=== PATIENT | female | born 1985 | race Caucasian/White ===

== ENCOUNTER 2019-10-13 01:30 | Observation (INO) | payer BC, OTHER ==
[~2019-10-13] VITALS: Ht 160 cm; Wt 83.6 kg
[~2019-10-13 01:30] MED LIST: AMOX500 PO; AMPDEX5 PO; ERGO400 PO; HYDACE5 PO; MULVITMIND PO
[2019-10-13] MEDS ORDERED: AMPDEX30CR PO (01:39)
[2019-10-13] MEDS ORDERED: BUPROPION XL150 M1 PO (01:40)
[2019-10-13] MEDS ORDERED: CLON.2 PO (01:40)
[2019-10-13 01:56] LABS: Source, Urine Clean Catch
[2019-10-13 01:59] LABS: Bilirubin, Urine Neg (Neg); Blood, Urine 5+ (Neg); Glucose Qualitative, Urine Neg (Neg); Ketones, Urine 1+ (Neg); Leukocyte Esterase, Urine 3+ (Neg); Nitrite, Urine Pos (Neg); Protein, Urine 3+ (Neg); Specific Gravity, Urine 1.015 (1.003-1.022); Urobilinogen, Urine NORM (Normal)
[2019-10-13 02:01] LABS: Appearance, Urine Cloudy (Clear); Color, Urine Yellow (P-Yellow)
[2019-10-13 02:08] LABS: Bacteria Many /hpf; Red Blood Cells, Urine TNTC /hpf (0-2); Squamous Epithelial Cells Few /hpf (Few); U Amphetamine Screen DETECTED; U Barbituate Screen Not Detected; U Benzodiazapine Screen Not Detected; U Buprenorphine Screen Not Detected; U Cannabinoids Screen Not Detected; U Cocaine Screen Not Detected; U Methadone Screen Not Detected; U Methamphetamine Screen Not Detected; U Opiates Screen Not Detected; U Oxycodone Screen Not Detected; U Phencyclidine Screen Not Detected; U Propoxyphene Screen Not Detected; White Blood Cells, Urine TNTC /hpf (0-5)
[2019-10-13 02:44] LABS: BASOPHILS ABSOLUTE AUTO 0.03 K/mm3 (0.00-0.23); BASOPHILS PERCENT AUTO 0 % (0-2); EOSINOPHILS ABSOLUTE AUTO 0.01 K/mm3 (0.00-0.68); EOSINOPHILS PERCENT AUTO 0 % (0-6); Hematocrit 29.5 % (33.0-51.0); Hemoglobin 9.6 g/dL (11.5-16.0); IMMATURE GRAN ABSOLUTE AUTO 0.19 K/mm3 (0.00-0.10); IMMATURE GRAN PERCENT AUTO 1 % (0-1); LYMPHOCYTES PERCENT AUTO 4 % (21-46); MONOCYTES ABSOLUTE AUTO 0.73 K/mm3 (0.16-1.47); MONOCYTES PERCENT AUTO 4 % (4-13); Mean Corpuscular HGB 26.7 pg (26.0-34.0); Mean Corpuscular HGB Conc 32.5 g/dL (31.5-36.5); Mean Corpuscular Volume 82 fL (80-100); NEUTROPHILS ABSOLUTE AUTO 16.33 K/mm3 (1.96-9.15); NEUTROPHILS PERCENT AUTO 91 % (41-73); Platelet Count 217 K/mm3 (150-400); RDW Coefficient Variation 14.7 % (11.7-14.2); RDW Standard Deviation 43.6 fL (35.1-46.3); White Blood Cell Count 17.99 K/mm3 (4.00-11.30)
[2019-10-13 03:03] LABS: Alanine Aminotransfer (ALT/SGP 18 U/L (12-78); Albumin, Blood 3.1 g/dL (3.4-5.0); Alk Phos 70 U/L (50-136); Anion Gap 8 mmol/L (6-16); Aspartate Aminotrans (AST/SGOT 14 U/L (12-37); Bilirubin, Total 0.4 mg/dL (0.1-1.0); Blood Urea Nitrogen 11 mg/dL (8-24); Bun/Creatinine Ratio 13.2 (12.0-20.0); CO2, Blood 21 mmol/L (21-32); Calcium, Blood 8.3 mg/dL (8.5-10.1); Chloride, Blood 108 mmol/L (98-108); Creatinine, Blood 0.83 mg/dL (0.40-1.00); Glomerular Filtration Rate >60 (60-); Glucose, Blood 104 mg/dL (70-99); Potassium, Blood 2.5 mmol/L (3.5-5.5); Sodium, Blood 137 mmol/L (136-145); Total Protein, Blood 6.1 g/dL (6.4-8.2)
--- NOTE | 2019-10-13 05:04 | NUR ---
ARRIVAL/SHIFT SUMMARY PT SLEEPING IN ROOM COMFORTABLY AT THIS TIME. PT ARRIVED FROM ED AND WAS BALE TO STAND ON WALK TO HOSP BED W/O ASSIST. PT DENIES ANY PAIN UPON ARRIVAL. REPORTS TIRED AND WANTS TO SLEEP. VSS, PT AFEBRILE. RESP EVEN UNLABORED ON RA W/ SATS >92%. PT HAS 500NS BOLUS INFUSING, AND KLC INFUSING AT 100ML/HR IN PIV AT THIS TIME. DENIED NEEDS. PT IS INDEPENDENT IN ROOM. CALL LIGHT IN REACH.
--- NOTE | 2019-10-13 09:10 | NUR ---
NOTE PT ALERT AND OREINTED. SR/ST. UP AD CHANCE. VOIDING BEV,CLOUDY SHAWNA URINE. IVF INFUSING. VSS. PT DENIES PAINFUL/BURNING URINATION. NO BACK PAIN OR NAUSEA. SHE DID COMPLAIN OF BEING DIZZY AT HOME. CONTINUE POT.
[2019-10-13 12:53] LABS: Anion Gap 5 mmol/L (6-16); Blood Urea Nitrogen 9 mg/dL (8-24); Bun/Creatinine Ratio 14.9 (12.0-20.0); CO2, Blood 18 mmol/L (21-32); Calcium, Blood 6.3 mg/dL (8.5-10.1); Chloride, Blood 121 mmol/L (98-108); Glomerular Filtration Rate >60 (60-); Glucose, Blood 77 mg/dL (70-99); Potassium, Blood 3.8 mmol/L (3.5-5.5); Sodium, Blood 144 mmol/L (136-145)
--- NOTE | 2019-10-13 13:45 | NUR ---
transfer to rm 357 Report called to Shameka sanches. Pt agreeable to transfer. COntinue pot.
--- NOTE | 2019-10-13 15:46 | NUR ---
SHIFT SUMMARY RECEIVED PT TO RM 357 VIA W/C FROM PCU 15. A&O, ABLE TO TX SELF TO BED. RECEIVED REPORT FROM FRED HO, PT TO ER LAST NIGHT D/T "FEELING LOWSY ALL DAY" THEN FINDING TEMP AT 103.0. PT ADMITTED FOR UTI, SEPSIS, AND HYPOKALEMIA. PT IMPROVING AND NEARING END OF SEPSIS PROTOCOL BOLUS. TO BE SL WHEN COMPLETE. NEXT ABX DUE TONIGHT. SEAN PG INFUSING. PER REPORT, SLUGGISH TO DRAW FROM. PT ON RA WITH LUNGS CTA. NO C/O PAIN, NAUSEA, OR BLADDER SPASMS. PT INDEPENDENT TO BTHRM. REFUSED SHOWER. PER REPORT, PT TO D/C TO HOME IN AM. VASE FOR BD KILGORE PROVIDED. DENIED FURTHER NEEDS AT THIS TIME. CALL LT IN REACH.
[2019-10-14 04:16] LABS: BASOPHILS ABSOLUTE AUTO 0.03 K/mm3 (0.00-0.23); BASOPHILS PERCENT AUTO 0 % (0-2); EOSINOPHILS ABSOLUTE AUTO 0.02 K/mm3 (0.00-0.68); EOSINOPHILS PERCENT AUTO 0 % (0-6); Hematocrit 26.9 % (33.0-51.0); Hemoglobin 8.4 g/dL (11.5-16.0); IMMATURE GRAN ABSOLUTE AUTO 0.14 K/mm3 (0.00-0.10); IMMATURE GRAN PERCENT AUTO 1 % (0-1); LYMPHOCYTES ABSOLUTE AUTO 1.19 K/mm3 (0.84-5.20); LYMPHOCYTES PERCENT AUTO 8 % (21-46); MONOCYTES ABSOLUTE AUTO 0.78 K/mm3 (0.16-1.47); MONOCYTES PERCENT AUTO 5 % (4-13); Mean Corpuscular HGB 26.3 pg (26.0-34.0); Mean Corpuscular HGB Conc 31.2 g/dL (31.5-36.5); Mean Corpuscular Volume 84 fL (80-100); Mean Platelet Volume 12.3 fL (9.1-12.4); NEUTROPHILS PERCENT AUTO 86 % (41-73); Platelet Count 166 K/mm3 (150-400); RDW Coefficient Variation 15.5 % (11.7-14.2); Red Blood Cell Count 3.19 M/mm3 (3.80-5.20); White Blood Cell Count 14.86 K/mm3 (4.00-11.30)
[2019-10-14 05:00] LABS: Alanine Aminotransfer (ALT/SGP 18 U/L (12-78); Albumin, Blood 2.6 g/dL (3.4-5.0); Albumin/Globulin Ratio 0.8 (0.8-1.8); Alk Phos 64 U/L (50-136); Anion Gap 7 mmol/L (6-16); Aspartate Aminotrans (AST/SGOT 15 U/L (12-37); Bilirubin, Total 0.4 mg/dL (0.1-1.0); Blood Urea Nitrogen 11 mg/dL (8-24); Bun/Creatinine Ratio 16.2 (12.0-20.0); CO2, Blood 19 mmol/L (21-32); Calcium, Blood 7.4 mg/dL (8.5-10.1); Chloride, Blood 112 mmol/L (98-108); Creatinine, Blood 0.68 mg/dL (0.40-1.00); Globulin, Blood 3.3 g/dL (2.2-4.0); Glomerular Filtration Rate >60 (60-); Glucose, Blood 82 mg/dL (70-99); Potassium, Blood 3.9 mmol/L (3.5-5.5); Sodium, Blood 138 mmol/L (136-145); Total Protein, Blood 5.9 g/dL (6.4-8.2)
--- NOTE | 2019-10-14 06:35 | NUR ---
PT A/O X4. INDEPENDENT IN ROOM. DENIES PAIN, SOB, NAUSEA, DIZZINESS. PT WAS FEBRILE AROUND 2100. ROOM TEMP LOWERED, COOL WASH CLOTH APPLIED TO FORHEAD. TEMP RE-ASSESSED WHICH DID NOT GO DOWN. PT GIVEN TYLENOL WHICH BROUGHT FEVER DOWN AND HAS BEEN AFEBRILE SINCE GIVEN TYLENOL. SLEPT WELL TONIGHT. NO ACUTE CHANGES.
[2019-10-14] MEDS ORDERED: CEFP200 PO (10:10)
[2019-10-14] MEDS ORDERED: ACET325 PO (10:10)
[2019-10-14] MEDS ORDERED: ONDA4ODT MM (10:10)
[2019-10-14] MEDS ORDERED: Florastor250 MG PO (10:11)
[2019-10-14] MEDS ORDERED: POTCHL20ER PO (10:11)
[2019-10-14] MEDS ORDERED: FERSU300 PO (10:48)
[2019-10-14] MEDS ORDERED: ASCO500 PO (10:48)
--- NOTE | 2019-10-14 11:02 | NUR ---
PT DCD HOME. MED REC FAXED TO [facility] PER PT REQUEST. JIM VIDAL WILL BE DRIVING HER HOME SHE CAME IN VIA AMBULANCE. PT HAS APPT SCHEDULED WITH PCP. ALL INSTRUCTIONS REVIEWED WITH PT WHO VERBALIZED AN UNDERSTANDING AND ALL QUESTIONS ANSWERED. IV'S REMOVED WITH NO ISSUE. ALL PERSONAL BELONINGS SENT WITH PT. PT IS GETTING DRESSED AND AWAITING HER RIDE.
== END 2019-10-14 11:21 | disposition home or self-care (01) ==
LOC: ER 01:30 → MEDS 01:31 → PCU 01:31 → MEDS 14:08
PROVIDERS: Emergency Medicine; ADMIT Internal Medicine
DX: A41.50 Gram-negative sepsis, unspecified (principal); N39.0 Urinary tract infection, site not specified; E87.6 Hypokalemia; D72.829 Elevated white blood cell count, unspecified; H66.90 Otitis media, unspecified, unspecified ear; F90.9 Attention-deficit hyperactivity disorder, unspecified type; Z79.899 Other long term (current) drug therapy; Z88.0 Allergy status to penicillin
CPT/HCPCS: 36415; 36416; 80048; 80053; 81001; 83605; 85025; 87040; 87077; 87086; 87186; 93005; 93010; 96361; 96365; 96366; 96372; 96375; 99285-25; A9270; G0378; J0696; J1650; J2405; J3480; J7030; P9612

== ENCOUNTER 2019-10-26 16:46 | Inpatient (IN) | payer BC, OTHER ==
[~2019-10-26] VITALS: Ht 160 cm; Wt 82.0 kg
[~2019-10-26 16:46] MED LIST changes: -CHLORZOXAZONE375 MG PO; -LEVOFLOXACIN750 MG PO; -VISBIOME 112.51 EACH PO; -VITAMIN B122500 MCG PO
[2019-10-26] MEDS ORDERED: VITAMIN B122500 MCG PO (17:39)
[2019-10-26] MEDS ORDERED: CHLORZOXAZONE375 MG PO (17:40)
[2019-10-26 18:22] LABS: Source, Urine Clean Catch
[2019-10-26 18:38] LABS: Bilirubin, Urine Neg (Neg); Blood, Urine 4+ (Neg); Glucose Qualitative, Urine Neg (Neg); Ketones, Urine Neg (Neg); Leukocyte Esterase, Urine 3+ (Neg); Nitrite, Urine Pos (Neg); Protein, Urine 1+ (Neg); Urobilinogen, Urine NORM (Normal)
[2019-10-26 18:41] LABS: Appearance, Urine Clear (Clear); Color, Urine Yellow (P-Yellow)
[2019-10-26 18:43] LABS: Bacteria Many /hpf; Red Blood Cells, Urine 0-2 /hpf (0-2); Squamous Epithelial Cells Few /hpf (Few)
[2019-10-26 19:32] LABS: Hematocrit 28.1 % (33.0-51.0); Hemoglobin 8.7 g/dL (11.5-16.0); Mean Corpuscular HGB 25.8 pg (26.0-34.0); Mean Corpuscular Volume 83 fL (80-100); Mean Platelet Volume 12.3 fL (9.1-12.4); Platelet Count 355 K/mm3 (150-400); RDW Coefficient Variation 15.4 % (11.7-14.2); Red Blood Cell Count 3.37 M/mm3 (3.80-5.20); White Blood Cell Count 24.95 K/mm3 (4.00-11.30)
[2019-10-26 19:50] LABS: Alanine Aminotransfer (ALT/SGP 24 U/L (12-78); Albumin, Blood 2.7 g/dL (3.4-5.0); Albumin/Globulin Ratio 0.6 (0.8-1.8); Alk Phos 111 U/L (50-136); Anion Gap 8 mmol/L (6-16); Aspartate Aminotrans (AST/SGOT 14 U/L (12-37); Bilirubin, Total 0.4 mg/dL (0.1-1.0); Blood Urea Nitrogen 12 mg/dL (8-24); Bun/Creatinine Ratio 14.9 (12.0-20.0); CO2, Blood 21 mmol/L (21-32); Calcium, Blood 8.5 mg/dL (8.5-10.1); Chloride, Blood 109 mmol/L (98-108); Globulin, Blood 4.8 g/dL (2.2-4.0); Glomerular Filtration Rate >60 (60-); Glucose, Blood 84 mg/dL (70-99); Potassium, Blood 3.9 mmol/L (3.5-5.5); Sodium, Blood 138 mmol/L (136-145); Total Protein, Blood 7.5 g/dL (6.4-8.2)
[2019-10-26 19:54] LABS: BAND PERCENT MAN 6 % (0-8); BASOPHILS ABSOLUTE MAN 0.49 K/mm3 (0.00-0.23); BASOPHILS PERCENT MAN 2 % (0-2); EOSINOPHILS PERCENT MAN 0 % (0-6); LYMPHOCYTES ABSOLUTE MAN 1.24 K/mm3 (0.84-5.20); LYMPHOCYTES PERCENT MAN 5 % (21-46); MONOCYTES ABSOLUTE MAN 0.74 K/mm3 (0.16-1.47); MONOCYTES PERCENT MAN 3 % (4-13); NEUTROPHILS ABSOLUTE MAN 22.45 K/mm3 (1.96-9.15); SEG NEUTROPHILS PERCENT MAN 84 % (41-73); TOTAL CELLS COUNTED 100
[2019-10-27 04:37] LABS: BASOPHILS ABSOLUTE AUTO 0.02 K/mm3 (0.00-0.23); BASOPHILS PERCENT AUTO 0 % (0-2); EOSINOPHILS ABSOLUTE AUTO 0.01 K/mm3 (0.00-0.68); EOSINOPHILS PERCENT AUTO 0 % (0-6); Hematocrit 25.5 % (33.0-51.0); Hemoglobin 7.7 g/dL (11.5-16.0); IMMATURE GRAN ABSOLUTE AUTO 0.69 K/mm3 (0.00-0.10); IMMATURE GRAN PERCENT AUTO 4 % (0-1); LYMPHOCYTES ABSOLUTE AUTO 0.95 K/mm3 (0.84-5.20); LYMPHOCYTES PERCENT AUTO 6 % (21-46); MONOCYTES PERCENT AUTO 8 % (4-13); Mean Corpuscular HGB 25.2 pg (26.0-34.0); Mean Corpuscular HGB Conc 30.2 g/dL (31.5-36.5); Mean Corpuscular Volume 83 fL (80-100); Mean Platelet Volume 11.7 fL (9.1-12.4); NEUTROPHILS ABSOLUTE AUTO 13.53 K/mm3 (1.96-9.15); NEUTROPHILS PERCENT AUTO 82 % (41-73); Platelet Count 288 K/mm3 (150-400); RDW Coefficient Variation 15.7 % (11.7-14.2); Red Blood Cell Count 3.06 M/mm3 (3.80-5.20)
[2019-10-27 04:55] LABS: Anion Gap 6 mmol/L (6-16); Blood Urea Nitrogen 13 mg/dL (8-24); Bun/Creatinine Ratio 15.2 (12.0-20.0); CO2, Blood 22 mmol/L (21-32); Calcium, Blood 7.5 mg/dL (8.5-10.1); Chloride, Blood 111 mmol/L (98-108); Creatinine, Blood 0.85 mg/dL (0.40-1.00); Glomerular Filtration Rate >60 (60-); Glucose, Blood 83 mg/dL (70-99); Sodium, Blood 139 mmol/L (136-145)
--- NOTE | 2019-10-27 05:14 | NUR ---
[id number] PHYSICIAN CORRESPONDENCE ALERTED PREVIOUS HGB 8.7; THIS AM CAME BACK @ 7.7. HX CHRONIC ANEMIA WELL CURRENTLY BEING ON MENSTRUAL CYCLE. RECIEVED 2,721 ML IV FLUIDS SO FAR. NO NEW ORDERS AT THIS TIME.
--- NOTE | 2019-10-27 06:21 | NUR ---
SHIFT SUMMARY RECIEVED REPORT FROM PRINCE HO, ED @ 0389. ARRIVED TO MEDICAL FLOOR @ 2251 VIA STRETCHER; NO ASSISTANCE NEED FOR TRANSFER TO BED. ORIENTED TO ROOM AND CALL SYSTEM. A/O, ABLE TO MAKE NEEDS KNOWN. COOPERATIVE WITH CARE. CALLS AND ANSWERS QUESTIONS APPROPRIATELY. NO C/O PAIN/DISCOMFORT; HOWEVER CONTINUES TO BE FEBRILE, MEDICATED PER EMAR. INDEPENDENT IN ROOM. IV FLUIDS CONTINUE TO INFUSE TO NEW 20G IV IN WITHOUT COMPLICATIONS. NO OTHER ACUTE CHANGES NOTED. BED IN LOWEST POSITION. CALL LIGHT AND BELONGINGS WITHIN REACH. WCTM. REPORT TO ARMANDO HO.
--- NOTE | 2019-10-27 15:22 | NUR ---
PT HAD A VEWS SCORE OF 4 RESP RATE 16 HR 110 (THIS HAS BEEN THE CASE SINCE ADMIT) AND TEMP 102.9. PROMPTLY MEDICATED PT WITH 650MG TYLENOL HAD HER REMOVE HER SWEAT PANTS AND PLACED HER UNDER JUST A SHEET, ICE PACK PLACED ON THE BACK OF HER NECK SHE STATED SHE ALSO HAS A MILD HEADACHE. WILL RECHECK TEMP IN 1 HOUR.
--- NOTE | 2019-10-27 16:14 | NUR ---
TEMPT RECHECK- PT TEMP ON RECHECK WAS 100.9. CALLED DR CARTER FOR THE ELEVATED VEWS SCORE, UPDATED WITH THE INTERVENTIONS EMPLOYED AND THE RESULT. NO NEW ORDERS AT THIS TIME WILL CTM.
--- NOTE | 2019-10-27 18:47 | NUR ---
SHIFT SUMMARY- PT ALERT, ORIENTED AND INDEPENDENT IN THE ROOM. PT MEDICATED WITH TYLENOL ONCE FOR SLIGHT KIRK (PER PT) 3/10 AND A TEMP 102.9. THIS SCORED A VEWS SCORE OF 4 REQUIREING VS [id number] X 3. WILL PASS ON TO NIGHT RN. PT TEMP DOWN TO 99.8 ON LAST VEWS SCORE AND HR DOWN TO 88. PT RESP RATE IS SHALLOW AND FAST. THIS SEEMS TO OCCUR REGULARLY. PT STATES NO SOB NO S&S OF DISTRESS NOTED AT THIS TIME. PT DENIES THE NEED FOR PAIN MEDICATION AT THIS TIME. PT HAS IVF RUNNING NS [id number] AT 75ML/HR. PT INDEPENDENT TO THE BATHROOM AND WILL WRITE THE NUMBER ON THE DRY ERASE BOARD IF SHE EMPTIES THE HAT. SHE DOES NOT LIKE TO CALL STAFF SO THIS WAS THE COMPROMISE. STAFF CAN CHART THE AMOUNT ON THEIR ROUNDING. WILL PASS ON IN REPORT TO NIGHT RN. PT HAS A NEW ORDER FOR IV IRON AT 1999 IRON DEFICIENCY PANEL SHOWS A LEVEL OF 8 NORMAL RANGE 50-170. IV IRON ORDERED AFTER THE RESULTS.
--- NOTE | 2019-10-27 23:44 | NUR ---
Pt temp down to 99 degrees f. Will return to routine VS but continue to assess pt throughout noct for fever, etc. Call light in reach. IVF infusing as per MD orders - see MAR for details.
[2019-10-28 04:15] LABS: Hematocrit 23.8 % (33.0-51.0); Hemoglobin 7.4 g/dL (11.5-16.0); Mean Corpuscular HGB 25.9 pg (26.0-34.0); Mean Corpuscular HGB Conc 31.1 g/dL (31.5-36.5); Mean Corpuscular Volume 83 fL (80-100); Mean Platelet Volume 11.5 fL (9.1-12.4); Platelet Count 334 K/mm3 (150-400); RDW Coefficient Variation 15.9 % (11.7-14.2); RDW Standard Deviation 48.5 fL (35.1-46.3); Red Blood Cell Count 2.86 M/mm3 (3.80-5.20); White Blood Cell Count 9.78 K/mm3 (4.00-11.30)
--- NOTE | 2019-10-28 05:12 | NUR ---
SUMMARY PT RESTING QUIETLY WITH OCCASIONAL WAKEFULNESS TO GO TO THE BATHROOM. FEVER BROKE LATE EVENING AND CURRENTLY REMAINS AFEBRILE (SEE DOC FLOW SHEETS). IVF OF NS WITH 20 mEq OF KCL INFUSING AT 75 ML/HR PER MD ORDERS. CALL LIGHT IN REACH. WILL CONTINUE TO MONITOR.
--- NOTE | 2019-10-28 17:11 | NUR ---
PT HAS BEEN INDEPENDENT IN ROOM AND AOX4. NO DISTRESS NOTED AND AFEBRILE TODAY. PT CALLS APPROPRIATELY AND IS PLEASANT WITH CARE. DENIED ANY PAIN AND HAS CALL LIGHT AVAILBLE. WILL CONTINUE TO MONITOR.
[2019-10-29 04:37] LABS: BASOPHILS ABSOLUTE AUTO 0.03 K/mm3 (0.00-0.23); BASOPHILS PERCENT AUTO 0 % (0-2); EOSINOPHILS ABSOLUTE AUTO 0.09 K/mm3 (0.00-0.68); EOSINOPHILS PERCENT AUTO 1 % (0-6); Hemoglobin 7.4 g/dL (11.5-16.0); IMMATURE GRAN PERCENT AUTO 1 % (0-1); LYMPHOCYTES ABSOLUTE AUTO 1.25 K/mm3 (0.84-5.20); LYMPHOCYTES PERCENT AUTO 15 % (21-46); MONOCYTES ABSOLUTE AUTO 0.67 K/mm3 (0.16-1.47); MONOCYTES PERCENT AUTO 8 % (4-13); Mean Corpuscular HGB 25.5 pg (26.0-34.0); Mean Corpuscular HGB Conc 30.8 g/dL (31.5-36.5); Mean Corpuscular Volume 83 fL (80-100); Mean Platelet Volume 11.4 fL (9.1-12.4); NEUTROPHILS ABSOLUTE AUTO 6.28 K/mm3 (1.96-9.15); NEUTROPHILS PERCENT AUTO 75 % (41-73); Platelet Count 379 K/mm3 (150-400); RDW Standard Deviation 49.1 fL (35.1-46.3); White Blood Cell Count 8.42 K/mm3 (4.00-11.30)
--- NOTE | 2019-10-29 05:15 | NUR ---
SHIFT SUMMARY: VSS. AFEB. A/OX4. COMMUNICATES NEEDS. IND IN ROOM. CONTINENT. DENIES DYSURIA AND FREQUENCY. PT STATES SHE FEELS MUCH BETTER OVERALL. WOKE UP DIAPHORETIC X 1. CHANGED GOWN AND ROOM TEMP LOWERED. NO FURTHER EPISODES. TYL X 1 PER PT REQUEST FOR TEMP OF 99.4 AND KIRK. BOTH IMPROVED W/PRN. SLEPT WELL MOST OF THE NIGHT. IV FLUIDS CONTINUOUSLY ORDERED. NO ACUTE CHANGES.
[2019-10-29] MEDS ORDERED: VISBIOME 112.51 EACH PO (11:19)
[2019-10-29] MEDS ORDERED: LEVOFLOXACIN750 MG PO (11:20)
--- NOTE | 2019-10-29 12:23 | NUR ---
PT DISCHARGED FROM THE UNIT. IV REMOVED. MEDICATIONS FAXED TO [facility]. DISCHARGE INSTRUCTIONS REVIEWED. NO QUESIONS AT THIS TIME. PT LEFT AT 1215 VIA WHEEL CHAIR.
== END 2019-10-29 12:42 | disposition home or self-care (01) | DRG 872 ==
LOC: ER 16:46 → MEDS 21:56
PROVIDERS: Emergency Medicine; Hospitalist; Internal Medicine; Nurse Practitioner Acute Care; Physician Assistant; ADMIT Family Medicine
DX: A41.51 Sepsis due to Escherichia coli [E. coli] (principal); N39.0 Urinary tract infection, site not specified; D50.9 Iron deficiency anemia, unspecified; F90.9 Attention-deficit hyperactivity disorder, unspecified type; Z88.1 Allergy status to other antibiotic agents; Z88.0 Allergy status to penicillin
CPT/HCPCS: 36415; 80048; 80053; 81001; 81025; 82728; 83540; 83550; 83605; 85025; 85027; 87077; 87086; 87147; 87186; 96361; 96365; 99284-25; A9270; J0696; J1650; J2916; J3480; J7030

== ENCOUNTER → 2019-10-26 | Outpatient (CLI) | payer BC ==
[~2019-10-26] MED LIST changes: +ACET325 PO; +AMPDEX30CR PO; +ASCO500 PO; +BUPROPION XL150 M1 PO; +CEFP200 PO; +CHLORZOXAZONE375 MG PO; +CLON.2 PO; +FERSU300 PO; +Florastor250 MG PO; +LEVOFLOXACIN750 MG PO; +ONDA4ODT MM; +POTCHL20ER PO; +VISBIOME 112.51 EACH PO; +VITAMIN B122500 MCG PO
== END | disposition home or self-care (01) ==
LOC: LAB SHORT 16:53 → LAB EV 16:53
DX: N39.0 Urinary tract infection, site not specified (principal)
CPT/HCPCS: 87077; 87086; 87186

== ENCOUNTER → 2020-05-18 | Outpatient (CLI) | payer BC ==
[~2020-05-18] MED LIST changes: +CHLORZOXAZONE375 MG PO; +LEVOFLOXACIN750 MG PO; +VISBIOME 112.51 EACH PO; +VITAMIN B122500 MCG PO
== END | disposition home or self-care (01) ==
LOC: LAB SHORT 06:55 → LAB 06:55
DX: N20.1 Calculus of ureter (principal)
CPT/HCPCS: 81050

== ENCOUNTER → 2020-10-12 | Outpatient (CLI) | payer BC ==
[2020-10-24 19:06] LABS: BRUSHITE 1.82 ratio (0.00-3.00); CALCIUM OXALATE 7.36 ratio (0.00-6.00); CALCIUM, URINE 130.5 mg/24 hr (100.0-300.0); CALCIUM, URINE 8.7 mg/dL (Not Estab.); CHLORIDE URINE 146 (110-250); CITRIC ACID (CITRATE) 186 mg/L (Not Estab.); CITRIC ACID(CITRATE) 279 mg/24 hr (320-1240); CREATININE, URINE 61.3 mg/dL (Not Estab.); CREATININE, URINE 919.5 mg/24 hr (800.0-1800.0); MAGNESIUM, URINE 6.2 mg/dL (Not Estab.); MONOSODIUM URATE 4.07 ratio (0.00-4.00); OSMOLALITY, URINE 485 (300-900); SODIUM, URINE 109 mmol/L (Not Estab.); SODIUM, URINE 164 (39-258); STRUVITE 0.11 ratio (0.00-1.00); URIC ACID 0.47 ratio (0.00-1.20); URINE VOLUME 1500 mL/24 hr (600-1600); URINE VOLUME (PRESERVATIVE) 1500 mL/24 hr (600-1600)
== END ==
LOC: LAB SHORT 07:10 → LAB 07:10 → EDSTATUS 07-02 11:15 → LAB FUT 07-02 11:15
PROVIDERS: Urology
DX: N20.1 Calculus of ureter (principal); Z88.0 Allergy status to penicillin; Z88.1 Allergy status to other antibiotic agents
CPT/HCPCS: 81003; 81050; 82131; 82140; 82340; 82436; 82507; 82570; 83735; 83935; 83945; 84105; 84133; 84300; 84392; 84560

== ENCOUNTER → 2021-03-02 | Outpatient (CLI) | payer BC ==
[2021-03-04 13:11] LABS: HPV 16 Negative (Negative); HPV 18 Negative (Negative); HPV OTHER HR TYPES Negative (Negative)
== END ==
LOC: LAB SHORT 14:36 → LAB 14:36
PROVIDERS: Obstetrics & Gynecology
DX: Z01.419 Encounter for gynecological examination (general) (routine) without abnormal findings (principal)
CPT/HCPCS: 87624; G0123

== ENCOUNTER → 2021-10-25 | Outpatient (CLI) | payer BC | END | disposition home or self-care (01) | LOC: LAB SHORT 07:43 → LAB 07:43 → LAB FUT 10-19 14:25 | DX: N20.1 Calculus of ureter (principal) | CPT/HCPCS: 81050 ==

== ENCOUNTER 2023-01-26 18:40 | Inpatient (IN) | payer BC ==
[~2023-01-26] VITALS: Ht 157.5 cm; Wt 91.5 kg
[2023-01-26 19:17] LABS: BASOPHILS ABSOLUTE AUTO 0.06 K/mm3 (0.00-0.23); BASOPHILS PERCENT AUTO 0 % (0-2); EOSINOPHILS PERCENT AUTO 0 % (0-6); Hematocrit 40.7 % (33.0-51.0); Hemoglobin 13.5 g/dL (11.5-16.0); IMMATURE GRAN ABSOLUTE AUTO 0.12 K/mm3 (0.00-0.10); IMMATURE GRAN PERCENT AUTO 1 % (0-1); LYMPHOCYTES PERCENT AUTO 3 % (21-46); MONOCYTES ABSOLUTE AUTO 1.09 K/mm3 (0.16-1.47); MONOCYTES PERCENT AUTO 7 % (4-13); Mean Corpuscular HGB Conc 33.2 g/dL (31.5-36.5); Mean Corpuscular Volume 88 fL (80-100); Mean Platelet Volume 12.2 fL (9.1-12.4); NEUTROPHILS PERCENT AUTO 89 % (41-73); Platelet Count 182 K/mm3 (150-400); RDW Coefficient Variation 13.2 % (11.7-14.2); RDW Standard Deviation 42.7 fL (35.1-46.3); Red Blood Cell Count 4.65 M/mm3 (3.80-5.20); White Blood Cell Count 15.27 K/mm3 (4.00-11.30)
[2023-01-26 19:42] LABS: Source, Urine Clean Catch
[2023-01-26 19:44] LABS: Albumin, Blood 2.9 g/dL (3.4-5.0); Albumin/Globulin Ratio 0.7 (0.8-1.8); Bilirubin, Total 0.6 mg/dL (0.1-1.0); Bun/Creatinine Ratio 18.7 (12.0-20.0); Calcium, Blood 8.8 mg/dL (8.5-10.1); Creatinine, Blood 0.96 mg/dL (0.40-1.00); Globulin, Blood 4.4 g/dL (2.2-4.0); Potassium, Blood 3.6 mmol/L (3.5-5.5); Total Protein, Blood 7.3 g/dL (6.4-8.2)
[2023-01-26 19:54] LABS: Appearance, Urine Hazy (Clear); Bilirubin, Urine Neg (Neg); Blood, Urine 5+ (Neg); Color, Urine Yellow (P-Yellow); Glucose Qualitative, Urine Neg (Neg); Ketones, Urine 1+ (Neg); Leukocyte Esterase, Urine 3+ (Neg); Nitrite, Urine Pos (Neg); Protein, Urine 3+ (Neg); Urobilinogen, Urine 1+ (Normal)
[2023-01-26 20:08] LABS: White Blood Cells, Urine 50-100 /hpf (0-5)
[2023-01-26 20:09] LABS: Bacteria Many /hpf; Hyaline Casts 0-2 /lpf (0-2); Renal Epithelial Rare /hpf (0-Rare); Squamous Epithelial Cells Many /hpf (Few); Transitional Epithelial Cells Few /hpf (0-Rare)
[2023-01-27] MEDS ORDERED: Vyvanse70 MG PO (03:53)
[2023-01-27 03:54] VITALS: BP 144/84
[2023-01-27] MEDS ORDERED: POTCIT10 PO (03:58)
--- NOTE | 2023-01-27 06:51 | NUR ---
Shift Summary PT admitted from ED with Dx of UTI. She is AOx4, indepedent in room, afebrile after tylenol in ED. Pt is hoping to get her prescribed Vyvanse and Bupropion this AM. She slept well after admitting process was completed around 0415. Pt states no pain or nausea.
[2023-01-27 08:01] LABS: Albumin, Blood 2.6 g/dL (3.4-5.0); Albumin/Globulin Ratio 0.6 (0.8-1.8); BASOPHILS ABSOLUTE AUTO 0.05 K/mm3 (0.00-0.23); BASOPHILS PERCENT AUTO 0 % (0-2); Bilirubin, Total 0.7 mg/dL (0.1-1.0); Bun/Creatinine Ratio 20.1 (12.0-20.0); Calcium, Blood 8.3 mg/dL (8.5-10.1); Creatinine, Blood 0.85 mg/dL (0.40-1.00); EOSINOPHILS ABSOLUTE AUTO 0.09 K/mm3 (0.00-0.68); EOSINOPHILS PERCENT AUTO 1 % (0-6); Hematocrit 36.4 % (33.0-51.0); Hemoglobin 12.4 g/dL (11.5-16.0); IMMATURE GRAN ABSOLUTE AUTO 0.09 K/mm3 (0.00-0.10); IMMATURE GRAN PERCENT AUTO 1 % (0-1); LYMPHOCYTES ABSOLUTE AUTO 0.42 K/mm3 (0.84-5.20); LYMPHOCYTES PERCENT AUTO 3 % (21-46); MONOCYTES ABSOLUTE AUTO 1.02 K/mm3 (0.16-1.47); MONOCYTES PERCENT AUTO 8 % (4-13); Mean Corpuscular HGB 29.1 pg (26.0-34.0); Mean Corpuscular HGB Conc 34.1 g/dL (31.5-36.5); Mean Corpuscular Volume 85 fL (80-100); Mean Platelet Volume 12.6 fL (9.1-12.4); NEUTROPHILS ABSOLUTE AUTO 11.08 K/mm3 (1.96-9.15); NEUTROPHILS PERCENT AUTO 87 % (41-73); Platelet Count 156 K/mm3 (150-400); Potassium, Blood 3.7 mmol/L (3.5-5.5); RDW Coefficient Variation 13.4 % (11.7-14.2); RDW Standard Deviation 41.7 fL (35.1-46.3); Red Blood Cell Count 4.26 M/mm3 (3.80-5.20); Total Protein, Blood 6.6 g/dL (6.4-8.2); White Blood Cell Count 12.75 K/mm3 (4.00-11.30)
--- NOTE | 2023-01-27 08:07 | NUR ---
Received report from Kiran HO noc shift nurse. Patient was receiving blood draw from lab at time of report. Patient AO x 4. answers all questions appropriately. Board updated. Fire safety questions asked and answered no acute concerns noted. Report to Bandar HO who will assume care and comfort of this patient.
[2023-01-27 08:23] VITALS: BP 114/95
--- NOTE | 2023-01-27 13:43 | NUR ---
CALLED DR GOINS NOW, INFORMED OF TEMP AT 1330 OF 104.0. PT WAS SHIVERING AND HAVING CHILLS. MEDICATED WITH TYLENOL AND STARTED LR WITH VERBAL ORDER TO INCREASE RATE TO 125ML/HR. 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 DR GOINS INFORMED. ORDER FOR RENAL U.S. PT ENC TO DRINK COLD FLUIDS AND TAKE OFF BLANKETS, ROOM HEATER TURNED OFF PT HAD IT SET TO HIGHEST LEVEL TO KEEP WARM. STILL TATY ANY ABD OR PELVIC PAIN, NO PAIN UPON URINATION. STAED URINE WAS DARK, AGAIN ENC FLUIDS AND STARTED IVF.
[2023-01-27 14:43] VITALS: BP 127/99
[2023-01-27 18:03] VITALS: BP 130/96
--- NOTE | 2023-01-27 19:35 | NUR ---
SUMMARY- PT A/O X4. DENIES ANY ABD OR FLANK PAIN. STATES THE ONLY SYMPTOM OF UTI IS URGENCY. PT IS INDEPENDANT TO BATHROOM. STATES URINE IS CONCENTRATED. RN ENCOURAGED PT ALL DAY TO DRINK FLUIDS BUT NOT TAKING IN MUCH DESPITE CONSTANT REMINDERS. THIS AFTERNOON PT BEGAN SHAKING, TEMP FOUND TO BE 104. GIVEN TYLENOL AND STARTED LR, PUSHED FLUIDS AND TEMP BROKE AFTER ONE HOUR. U.S.COMPLETED OF BLADDER/KIDNEYS TO R/O OBSTRUDCION THAT PT HAS A HX OF IN THE PAST RELATED TO KIDNEY STONES WITH NO SYMPTOMS. REPORTED TO NIGHT RN
[2023-01-27 20:07] VITALS: BP 137/91
[2023-01-28 05:02] VITALS: BP 127/85
[2023-01-28 05:42] LABS: BASOPHILS ABSOLUTE AUTO 0.04 K/mm3 (0.00-0.23); BASOPHILS PERCENT AUTO 0 % (0-2); EOSINOPHILS ABSOLUTE AUTO 0.02 K/mm3 (0.00-0.68); EOSINOPHILS PERCENT AUTO 0 % (0-6); Hemoglobin 12.1 g/dL (11.5-16.0); IMMATURE GRAN ABSOLUTE AUTO 0.17 K/mm3 (0.00-0.10); IMMATURE GRAN PERCENT AUTO 1 % (0-1); LYMPHOCYTES ABSOLUTE AUTO 1.19 K/mm3 (0.84-5.20); LYMPHOCYTES PERCENT AUTO 9 % (21-46); MONOCYTES ABSOLUTE AUTO 1.09 K/mm3 (0.16-1.47); MONOCYTES PERCENT AUTO 8 % (4-13); Mean Corpuscular HGB 28.5 pg (26.0-34.0); Mean Corpuscular HGB Conc 32.7 g/dL (31.5-36.5); Mean Corpuscular Volume 87 fL (80-100); Mean Platelet Volume 11.7 fL (9.1-12.4); NEUTROPHILS PERCENT AUTO 81 % (41-73); Platelet Count 173 K/mm3 (150-400); RDW Coefficient Variation 13.8 % (11.7-14.2); RDW Standard Deviation 44.3 fL (35.1-46.3); Red Blood Cell Count 4.25 M/mm3 (3.80-5.20); White Blood Cell Count 12.91 K/mm3 (4.00-11.30)
--- NOTE | 2023-01-28 05:43 | NUR ---
Shift Summary Pt has new onset cough which she states started at noon yesterday. She was experiencing chills early in the shift although no fever was noted. Tessalon ordered per hospitalist for cough. Pt still coughing this AM. Slept well t/o the night. AOx4, indepedent in room.
[2023-01-28 06:11] LABS: Albumin, Blood 2.3 g/dL (3.4-5.0); Anion Gap 8 mmol/L (6-16); Blood Urea Nitrogen 16 mg/dL (8-24); CO2, Blood 21 mmol/L (21-32); Calcium, Blood 8.6 mg/dL (8.5-10.1); Chloride, Blood 111 mmol/L (98-108); Creatinine, Blood 0.76 mg/dL (0.40-1.00); Glomerular Filtration Rate 102 (60-); Glucose, Blood 90 mg/dL (70-99); Phosphorus, Blood 2.1 mg/dL (2.5-4.9); Potassium, Blood 3.7 mmol/L (3.5-5.5); Sodium, Blood 140 mmol/L (136-145)
--- NOTE | 2023-01-28 08:00 | NUR ---
Pt up in room indep, a/ox4, pleasant and coopertive with care, follows commands well, denies pain, states she feels good, lungs clear r/a resp even and unlabored, no cough noted, hrr, no edema noted, ppp+2, cap refill <3sec, vs stable, afebrile, iv site is clear and patent, btx4, abd flat soft nontender, voids without diff, skin c/w/d, maew, charity, call light in reach.
[2023-01-28 08:14] VITALS: BP 136/93
[2023-01-28] MEDS ORDERED: LEVO750 PO (10:39)
[2023-01-28] MEDS ORDERED: LACT PO (10:40)
[2023-01-28] MEDS ORDERED: Acetaminophen650 M1 PO (10:42)
--- NOTE | 2023-01-28 11:30 | NUR ---
Pt has been discharged to home, iv removed intact, new meds faxed to [facility], went over discharge instructions, she verbalized understanding, left kimmy wheelchair with technical specialist in attendence.
== END 2023-01-28 11:41 | disposition home or self-care (01) | DRG 872 ==
LOC: ER 18:40 → MEDS 18:41 → ER 01-27 03:36 → MEDS 01-27 03:45 → ENPENDDIS 01-28 10:14 → MEDS 01-28 11:41
PROVIDERS: Emergency Medicine; Family Medicine; Medical Genetics Clinical Biochemical Genetics; ADMIT Student in an Organized Health Care Education/Training Program
DX: A41.51 Sepsis due to Escherichia coli [E. coli] (principal); N39.0 Urinary tract infection, site not specified; N13.6 Pyonephrosis; D50.9 Iron deficiency anemia, unspecified; F90.9 Attention-deficit hyperactivity disorder, unspecified type; N16 Renal tubulo-interstitial disorders in diseases classified elsewhere; D72.829 Elevated white blood cell count, unspecified; I48.91 Unspecified atrial fibrillation; E83.39 Other disorders of phosphorus metabolism; Z88.1 Allergy status to other antibiotic agents; Z88.0 Allergy status to penicillin; Z79.899 Other long term (current) drug therapy
CPT/HCPCS: 36415; 76770; 80053; 80069; 81001; 81025; 83605; 85025; 87040; 87077; 87086; 87186; 96361; 96365; 96372; 96375; 99285-25; A9270; G0378; J0696; J1650; J1885; J7030; J7120

== ENCOUNTER 2023-04-13 06:55 | Inpatient (IN) | payer BC ==
[~2023-04-13] VITALS: Ht 160 cm; Wt 89.0 kg
[2023-04-13] VITALS (18 sets, daily range): BP systolic 107–181; BP diastolic 68–94
[~2023-04-13 06:55] MED LIST changes: +Acetaminophen650 M1 PO; +IBUP200 PO; +LACT PO; +LEVO750 PO; +POTCIT10 PO; +Vyvanse70 MG PO
--- NOTE | 2023-04-13 08:01 | NUR ---
Ambulatory in Day Surgery History, Chart, Medications and Allergies reviewed before start of procedure. Pre-Op teaching done. Pt verbalizes understanding.
--- NOTE | 2023-04-13 12:43 | NUR ---
PT ARRIVED TO [facility] POST ABDMONIAL HYSTER, ON RA A&O X4, WALDRON IN PLACE DRAINING CLEAR YELLOW URINE, BIOX 100% ON RA, ABD DRESSING IN PALCE CDI, 20G IN IN RH, PT REQUESTING ICE CHIPS AND DRINK OF WATER. PT STATES PAIN BEING 6/10.
[2023-04-13 13:48] LABS: BASOPHILS ABSOLUTE AUTO 0.03 K/mm3 (0.00-0.23); BASOPHILS PERCENT AUTO 0 % (0-2); EOSINOPHILS ABSOLUTE AUTO 0.01 K/mm3 (0.00-0.68); EOSINOPHILS PERCENT AUTO 0 % (0-6); Hematocrit 37.8 % (33.0-51.0); Hemoglobin 12.4 g/dL (11.5-16.0); IMMATURE GRAN ABSOLUTE AUTO 0.09 K/mm3 (0.00-0.10); IMMATURE GRAN PERCENT AUTO 1 % (0-1); LYMPHOCYTES ABSOLUTE AUTO 0.61 K/mm3 (0.84-5.20); LYMPHOCYTES PERCENT AUTO 4 % (21-46); MONOCYTES ABSOLUTE AUTO 0.51 K/mm3 (0.16-1.47); MONOCYTES PERCENT AUTO 3 % (4-13); Mean Corpuscular HGB 29.4 pg (26.0-34.0); Mean Corpuscular HGB Conc 32.8 g/dL (31.5-36.5); Mean Corpuscular Volume 90 fL (80-100); Mean Platelet Volume 11.9 fL (9.1-12.4); NEUTROPHILS ABSOLUTE AUTO 15.66 K/mm3 (1.96-9.15); NEUTROPHILS PERCENT AUTO 93 % (41-73); Platelet Count 228 K/mm3 (150-400); RDW Coefficient Variation 12.9 % (11.7-14.2); RDW Standard Deviation 42.1 fL (35.1-46.3); Red Blood Cell Count 4.22 M/mm3 (3.80-5.20); White Blood Cell Count 16.91 K/mm3 (4.00-11.30)
--- NOTE | 2023-04-13 18:34 | NUR ---
patient up to have bowel movement linen changed
[2023-04-14 05:00] VITALS: BP 135/72
--- NOTE | 2023-04-14 05:47 | NUR ---
04/13/23 @ [address] VIZCAINO ABOUT PATIENT'S INCREASING BP. GAVE ORDER OF CLONIDINE 0.2 MG NOW AND 0.2 MG BID FOR THE NEXT DAY. 04/13/23 @ [address] VIZCAINO THAT PATIENT'S BP WENT DOWN SIGNIFICANTLY TO 140'S/70'S USING THE RIGHT SIZE OF BP CUFF. VERIFIED TO GIVE CLONIDINE ORDERED.
[2023-04-14 05:53] LABS: BASOPHILS ABSOLUTE AUTO 0.03 K/mm3 (0.00-0.23); BASOPHILS PERCENT AUTO 0 % (0-2); EOSINOPHILS ABSOLUTE AUTO 0.15 K/mm3 (0.00-0.68); EOSINOPHILS PERCENT AUTO 1 % (0-6); Hematocrit 29.2 % (33.0-51.0); Hemoglobin 9.8 g/dL (11.5-16.0); IMMATURE GRAN ABSOLUTE AUTO 0.07 K/mm3 (0.00-0.10); IMMATURE GRAN PERCENT AUTO 1 % (0-1); LYMPHOCYTES ABSOLUTE AUTO 1.75 K/mm3 (0.84-5.20); LYMPHOCYTES PERCENT AUTO 15 % (21-46); MONOCYTES PERCENT AUTO 7 % (4-13); Mean Corpuscular HGB 29.5 pg (26.0-34.0); Mean Corpuscular HGB Conc 33.6 g/dL (31.5-36.5); Mean Corpuscular Volume 88 fL (80-100); NEUTROPHILS ABSOLUTE AUTO 8.97 K/mm3 (1.96-9.15); NEUTROPHILS PERCENT AUTO 76 % (41-73); Platelet Count 204 K/mm3 (150-400); RDW Coefficient Variation 12.9 % (11.7-14.2); RDW Standard Deviation 41.1 fL (35.1-46.3); Red Blood Cell Count 3.32 M/mm3 (3.80-5.20); White Blood Cell Count 11.77 K/mm3 (4.00-11.30)
[2023-04-14 08:32] VITALS: BP 103/66
[2023-04-14 11:25] VITALS: BP 101/61
[2023-04-14 16:05] VITALS: BP 118/74
[2023-04-15 06:33] LABS: BASOPHILS ABSOLUTE AUTO 0.04 K/mm3 (0.00-0.23); BASOPHILS PERCENT AUTO 1 % (0-2); EOSINOPHILS PERCENT AUTO 2 % (0-6); Hematocrit 27.3 % (33.0-51.0); Hemoglobin 9.1 g/dL (11.5-16.0); IMMATURE GRAN ABSOLUTE AUTO 0.05 K/mm3 (0.00-0.10); IMMATURE GRAN PERCENT AUTO 1 % (0-1); LYMPHOCYTES ABSOLUTE AUTO 1.93 K/mm3 (0.84-5.20); LYMPHOCYTES PERCENT AUTO 23 % (21-46); MONOCYTES ABSOLUTE AUTO 0.59 K/mm3 (0.16-1.47); MONOCYTES PERCENT AUTO 7 % (4-13); Mean Corpuscular HGB 29.7 pg (26.0-34.0); Mean Corpuscular HGB Conc 33.3 g/dL (31.5-36.5); Mean Corpuscular Volume 89 fL (80-100); Mean Platelet Volume 12.2 fL (9.1-12.4); NEUTROPHILS ABSOLUTE AUTO 5.57 K/mm3 (1.96-9.15); NEUTROPHILS PERCENT AUTO 67 % (41-73); Platelet Count 197 K/mm3 (150-400); RDW Coefficient Variation 13.4 % (11.7-14.2); RDW Standard Deviation 43.8 fL (35.1-46.3); Red Blood Cell Count 3.06 M/mm3 (3.80-5.20); White Blood Cell Count 8.38 K/mm3 (4.00-11.30)
--- NOTE | 2023-04-15 17:30 | NUR ---
1110 DISCHARGE INSTRUCTIONS REVIEWED WITH AND COPY GIVEN TO PATIENT. PARENTS PRESENT FOR INSTRUCTIONS. APPROPRIATE QUESTIONS ASKED AND ANSWERED. DISCHARGED HOME AMBULATORY
== END 2023-04-15 11:58 | disposition home or self-care (01) | DRG 742 ==
LOC: SURS 06:55 → PRE IP 08:00 → BC 12:38 → SURS 04-15 10:45
PROVIDERS: ADMIT Obstetrics & Gynecology
PROC: 0UT90ZL Resection of Uterus, Supracervical, Open Approach (ICD-10-PCS; principal; 2023-04-13 08:00)
DX: D25.9 Leiomyoma of uterus, unspecified (principal); K91.72 Accidental puncture and laceration of a digestive system organ or structure during other procedure; N85.2 Hypertrophy of uterus; I10 Essential (primary) hypertension; N13.5 Crossing vessel and stricture of ureter without hydronephrosis; Z88.0 Allergy status to penicillin; N73.6 Female pelvic peritoneal adhesions (postinfective); X58.XXXA Exposure to other specified factors, initial encounter; E66.9 Obesity, unspecified; Z68.34 Body mass index [BMI] 34.0-34.9, adult
CPT/HCPCS: 36415; 85025; 86850; 86900; 86901; 88307; A9270; J0690; J1100; J1885; J2250; J2371; J2405; J2704; J3010; J7120

== ENCOUNTER → 2024-04-08 | Outpatient (CLI) | payer BC | END | disposition home or self-care (01) | LOC: LAB 07:30 → LAB SHORT 07:30 → LAB FUT 01-31 11:00 | DX: N20.2 Calculus of kidney with calculus of ureter (principal); R82.994 Hypercalciuria; R82.991 Hypocitraturia | CPT/HCPCS: 81050 ==